=== PATIENT | female | born 1985 | race Caucasian/White ===

== ENCOUNTER 2017-06-24 11:34 | Emergency (ER) | payer BC, OTHER ==
[~2017-06-24 11:34] MED LIST: LEXA10TA; Z.0.BCPILL
[2017-06-24 11:45] VITALS: BP 165/97; PULSE 93; RESP 16; TEMP 98.2; O2SAT 98
[2017-06-24] MEDS ORDERED: KETOROLAC TROMETHAMINE 60 MG/2 ML (IM) VIAL IM ONE (12:15)
[2017-06-24] MEDS ORDERED: RABIES VACCINE HUMAN DIPL CELL 2.5 UNITS/ML SYRINGE IM ONE (12:15)
[2017-06-24] MEDS ORDERED: RABIES IMMUNE GLOBULIN INJ 1,500 UNITS/10 ML VIAL IM ONE (12:15)
[2017-06-24] MEDS ORDERED: LEXA10TA PO (12:18)
[2017-06-24] MEDS ORDERED: birth control PO (12:18)
--- NOTE | 2017-06-24 12:31 | PD ---
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 The dog came in with emergency condition which caused the of the dog. Ulnar of the dog stated that he was up-to-date on his immunizations but this cannot be verified as it is Monday. Patient has 2 small puncture wounds to the left forearm with localized ecchymosis and erythema. They are almost full-thickness. There is no bleeding. The area is tender with palpation secondary to the pinching of the skin. Patient has full range of motion of the hand and forearm otherwise. Patient's last tetanus was 4 years ago. Patient is currently on Augmentin for a respiratory infection, and has 2 days left. Pain is currently about a 7 out of 10. She has no known drug allergies. This is a workplace injury PFS Past Medical History Asthma: No Autoimmune Disease: No Blood Disorders: No Anxiety: Yes Depression: Yes Heart Rhythm Problems: No Cardiovascular Problems: No Chest Pain: No Cystic Fibrosis: No Diminished Hearing: No Gastrointestinal Disorders: Yes Genitourinary: No Headaches: No Hypertension: No Musculoskeletal: No Neurologic: No Psychiatric: Yes Respiratory: No Immunizations Current: Yes Seizures: No Sickle Cell Disease: No Sleep Apnea: No Tetanus Vaccination: < 5 Years ?: Not Past Surgical History Abdominal Surgery: No Cardiac Surgery: No Ear Surgery: No Endocrine Surgery: No Eye Surgery: No Genitourinary Surgery: No Gynecologic Surgery: No Neurologic Surgery: No Oral Surgery: No Thoracic Surgery: No Other Surgery: Yes (liposuction) Social History Alcohol Use: No Tobacco Use: No Substance Use: No Allergies-Medications (Allergen,Severity, Reaction): Coded Allergies: No Known Allergies (Verified , 10/14/15) Uncoded Allergies: NKA (Allergy, Unknown, 12/30/02) Reported Meds & Prescriptions Reported Meds & Active Scripts Active Ibuprofen 800 Mg Tab 800 Mg PO Q8H PRN Reported [ control] 1 Tab PO DAILY Lexapro (Escitalopram Oxalate) 10 Mg Tab 10 Mg PO DAILY Review of Systems Except as stated in HPI: all other systems reviewed are Neg General / Constitutional: No: Fever Eyes: No: Visual changes HENT: No: Headaches Cardiovascular: No: Chest Pain or Discomfort Respiratory: No: Shortness of Breath Gastrointestinal: No: Abdominal Pain Genitourinary: No: Dysuria Musculoskeletal: Positive: Myalgias, Pain, No: Limited ROM Skin: Positive Lesions (See history of present illness), No Rash Neurologic: No: Weakness Psychiatric: No: Depression Endocrine: No: Polydipsia Hematologic/Lymphatic: No: Easy Bruising Physical Exam Narrative GENERAL: Patient appears in mild to moderate distress per SKIN: Warm and dry. Normal color. Normal turgor. Patient is to puncture wounds to the volar lateral left forearm, with localized ecchymosis and mild erythema. Puncture wounds are barely full-thickness. There is no significant bleeding. HEAD: Atraumatic. Normocephalic. EYES: Pupils equal and round. No scleral icterus. No injection or drainage. ENT: No nasal bleeding or discharge. Mucous membranes pink and moist. Pharynx is clear. Airways patent. NECK: Trachea midline. No JVD. CARDIOVASCULAR: Regular rate and rhythm. RESPIRATORY: No accessory muscle use. Clear to auscultation. Breath sounds equal bilaterally. MUSCULOSKELETAL: Extremities without clubbing, cyanosis, or edema. No obvious deformities. Patient is mildly limited range of motion of the left forearm and hand secondary to pain only. No weakness. NEUROLOGICAL: Awake and alert. No obvious cranial nerve deficits. Motor grossly within normal limits. Five out of 5 muscle strength in the arms and legs. Normal speech. PSYCHIATRIC: Appropriate mood and affect; insight and judgment normal. Data Data Last Documented VS Vital Signs Date Time Temp Pulse Resp B/P (MAP) Pulse Ox O2 Delivery O2 Flow Rate FiO2 06/24/17 11:45 98.2 93 16 165/97 (119) 98 Orders Orders Ketorolac Inj (Toradol Inj) (06/24/17 12:15) Rabies Immune Globulin Inj (Hyperrab S/D (06/24/17 12:15) Rabies Vaccine Human Cell Inj (Imovax In (06/24/17 12:15) [facility] Medical Decision Making Medical Screen Exam Complete: Yes Emergency Medical Condition: Yes Differential Diagnosis Workplace injury. Dog bite. Question of rabies exposure. Narrative Course Patient is medically stable at time of exam. Patient is up-to-date on her tetanus immunization. Patient is already on Augmentin. Radiographic imaging is not felt warranted based on my history and physical. Recommend rabies vaccination to be started with localized rabies hemoglobin. Patient was given Toradol 60 mg IM. Workers comp form is completed. Patient to return in 3 days, 7 days, and 14 days to finish the rabies vaccine. Patient is given ibuprofen 800 mg 3 times daily #30. Patient is to finish her Augmentin as previously prescribed. Diagnosis Primary Impression: Work related injury Additional Impressions: Dog bite Qualified Codes: W54.0XXA - Bitten by dog, initial encounter Rabies, need for prophylactic vaccination against Patient Instructions: General Instructions, Rabies Immune Globulin (By injection), Rabies Vaccine (By injection) Additional Instructions: Patient is up-to-date on her tetanus immunization. Patient is already on Augmentin. Radiographic imaging is not felt warranted based on my history and physical. Recommend rabies vaccination to be started with localized rabies hemoglobin. Patient was given Toradol 60 mg IM. Workers comp form is completed. Patient to return in 3 days, 7 days, and 14 days to finish the rabies vaccine. Patient is given ibuprofen 800 mg 3 times daily #30. Patient is to finish her Augmentin as previously prescribed. Med/Other Pt SpecificInfo: Prescription(s) given Scripts Ibuprofen (Ibuprofen) 800 Mg Tab 800 MG PO Q8H Y for Pain/Inflammation, #30 TAB 0 Refills Prov: Lanette Troy DO 06/24/17 Disposition: 01 DISCHARGE HOME Condition: Stable Andrea Palencia Jun 24, 2017 12:31
[2017-06-24] MEDS ORDERED: IBUP1TAB7 PO (13:01)
== END 2017-06-24 13:28 | disposition home or self-care (01) ==
LOC: NEPD 11:34
DX: S51.832A Puncture wound without foreign body of left forearm, initial encounter (principal); F41.9 Anxiety disorder, unspecified; F32.9 Major depressive disorder, single episode, unspecified; Z29.14 Encounter for prophylactic rabies immune globulin; Z79.899 Other long term (current) drug therapy; W54.0XXA Bitten by dog, initial encounter; Y92.89 Other specified places as the place of occurrence of the external cause; Y99.0 Civilian activity done for income or pay
CPT/HCPCS: 90375; 90471; 90675; 96372; 99283; J1885

== ENCOUNTER 2017-09-06 09:50 | Inpatient (IN) | payer OTHER ==
[~2017-09-06] VITALS: Ht 165.1 cm; Wt 106.0 kg
[2017-09-06] VITALS (13 sets, daily range): BP systolic 144–148; BP diastolic 77–97; PULSE 80–118; RESP 16–20; TEMP 97.8–99.3; O2SAT 97–100
[~2017-09-06 09:50] MED LIST changes: +IBUP1TAB7 PO; -LEXA10TA; +LEXA10TA PO; -Z.0.BCPILL; +birth control PO
[2017-09-06] MEDS: RESP: ALBUTEROL 2.5 MG/IPRATROPIUM 0.5 MG NEB (SCH) INH ×2 (09:55→09:56)
[2017-09-06] MEDS ORDERED: diphenhydrAMINE HCL 50 MG/ML VIAL IVP ONE (10:00)
[2017-09-06] MEDS ORDERED: SODIUM CHLORIDE 0.9% FLUSH 10 ML FLUSH IV FLUSH PRN (10:00)
[2017-09-06] MEDS ORDERED: ONDANSETRON ODT 4 MG TAB PO ONE (10:00)
[2017-09-06] MEDS ORDERED: SODIUM CHLOR 0.9% 1000 ML INJ 1,000 ML IV SCH (10:00)
[2017-09-06] MEDS ORDERED: FAMOTIDINE 20 MG/2 ML VIAL IV PUSH ONE (10:00)
[2017-09-06] MEDS ORDERED: methylPREDNISolone SOD SUCC 125 MG/2 ML VIAL IV PUSH ONE (10:00)
[2017-09-06] MEDS ORDERED: EPINEPHrine HCL (1:1000) 1 MG/ML VIAL IM ONE (10:00)
[2017-09-06] MEDS ORDERED: ONDANSETRON HCL 4 MG/2 ML VIAL IV ONE (10:00)
[2017-09-06 10:22] LABS: AUTOMATED NEUTROPHIL # 5.6 TH/MM3 (1.8-7.7); BASOPHIL # 0.1 TH/MM3 (0-0.2); BASOPHIL % 0.9 % (0.0-2.0); EOSINOPHIL # 0.2 TH/MM3 (0-0.4); HEMATOCRIT 44.1 % (35.0-46.0); HEMOGLOBIN 14.6 GM/DL (11.6-15.3); LYMPH % 40.3 % (9.0-44.0); LYMPHOCYTE # 4.6 TH/MM3 (1.0-4.8); MEAN CELL VOLUME 85.4 FL (80.0-100.0); MEAN CORPUSCULAR HEMOGLOBIN 28.3 PG (27.0-34.0); MEAN CORPUSCULAR HGB CONC 33.1 % (32.0-36.0); MEAN PLATELET VOLUME 8.2 FL (7.0-11.0); MONO % 7.9 % (0.0-8.0); MONOCYTE # 0.9 TH/MM3 (0-0.9); NEUT % 48.9 % (16.0-70.0); PLATELET COUNT 433 TH/MM3 (150-450); RED BLOOD COUNT 5.17 MIL/MM3 (4.00-5.30); RED CELL DISTRIBUTION WIDTH 13.3 % (11.6-17.2); WHITE BLOOD COUNT 11.5 TH/MM3 (4.0-11.0)
[2017-09-06 10:44] LABS: ALBUMIN 4.2 GM/DL (3.4-5.0); AST (GOT) 14 U/L (15-37); BICARBONATE 23.7 MEQ/L (21.0-32.0); BLOOD UREA NITROGEN 12 MG/DL (7-18); CALCIUM 9.5 MG/DL (8.5-10.1); CHLORIDE 105 MEQ/L (98-107); GLOMERULAR FILTRATION RATE 66 ML/MIN (>89); GLUCOSE,RANDOM 111 MG/DL (74-106); SODIUM (NA) 140 MEQ/L (136-145)
[2017-09-06 10:45] LABS: ALT (GPT) 27 U/L (10-53)
[2017-09-06 10:47] LABS: ALKALINE PHOSPHATASE 66 U/L (45-117); TOTAL BILIRUBIN ADULT 0.6 MG/DL (0.2-1.0); TOTAL PROTEIN 9.5 GM/DL (6.4-8.2)
--- NOTE | 2017-09-06 11:32 | PD ---
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 She administered her own EpiPen and got out of the building. She drove to the emergency department. She also felt very nauseous. This is happened to her twice in the past where she is needed to go to the emergency department for these symptoms. In the past she has taken epinephrine and stayed home. PFSH Past Medical History Asthma: No Autoimmune Disease: No Blood Disorders: No Anxiety: Yes Depression: Yes Heart Rhythm Problems: No Cardiovascular Problems: No Chest Pain: No Cystic Fibrosis: No Diminished Hearing: No Gastrointestinal Disorders: Yes Genitourinary: No Headaches: No Hypertension: No Musculoskeletal: No Neurologic: No Psychiatric: Yes Respiratory: No Immunizations Current: Yes Seizures: No Sickle Cell Disease: No Sleep Apnea: No Tetanus Vaccination: < 5 Years Influenza Vaccination: Yes ?: Not Past Surgical History Abdominal Surgery: No Cardiac Surgery: No Ear Surgery: No Endocrine Surgery: No Eye Surgery: No Genitourinary Surgery: No Gynecologic Surgery: No Neurologic Surgery: No Oral Surgery: No Thoracic Surgery: No Other Surgery: Yes (liposuction) Social History Alcohol Use: No Tobacco Use: No Substance Use: No Allergies-Medications (Allergen,Severity, Reaction): Coded Allergies: No Known Allergies (Verified , 10/14/15) Uncoded Allergies: NKA (Allergy, Unknown, 12/30/02) Reported Meds & Prescriptions Reported Meds & Active Scripts Active Ibuprofen 800 Mg Tab 800 Mg PO Q8H PRN Reported [ control] 1 Tab PO DAILY Lexapro (Escitalopram Oxalate) 10 Mg Tab 10 Mg PO DAILY Review of Systems Except as stated in HPI: all other systems reviewed are Neg Physical Exam Narrative GENERAL: Anxious appearing SKIN: Focused skin assessment warm and dry. HEAD: Atraumatic. Normocephalic. EYES: Pupils equal and round. No injection or drainage. ENT: Moist mucous membranes NECK: Trachea midline. CARDIOVASCULAR: Tachycardic. No murmur appreciated. RESPIRATORY: Tachypnea, diffusely wheezing, unable to vocalize with stridor GASTROINTESTINAL: Abdomen soft, non-tender, nondistended. MUSCULOSKELETAL: No obvious deformities. NEUROLOGICAL: Awake and alert. No obvious cranial nerve deficits. Moving all extremities. PSYCHIATRIC: Appropriate mood and affect; insight and judgment normal. Data Data Last Documented VS Vital Signs Date Time Temp Pulse Resp B/P (MAP) Pulse Ox O2 Delivery O2 Flow Rate FiO2 09/06/17 10:00 118 147/68 09/06/17 09:57 20 100 Nasal Cannula 2.00 09/06/17 09:53 97.8 Orders Orders Complete Blood Count With Diff (09/06/17 09:53) Comprehensive Metabolic Panel (09/06/17 09:53) Ecg Monitoring (09/06/17 09:53) Iv Access Insert/Monitor (09/06/17 09:53) Oximetry (09/06/17 09:53) Diphenhydramine Inj (Benadryl Inj) (09/06/17 10:00) Methylprednisolone So Succ Inj (Solumedr (09/06/17 10:00) Famotidine Inj (Pepcid Inj) (09/06/17 10:00) Albuterol-Ipratropium Neb (Duoneb Neb) (09/06/17 10:00) Sodium Chloride 0.9% Flush (Ns Flush) (09/06/17 10:00) Epinephrine (1:1000) Inj (Adrenalin (1:1 (09/06/17 10:00) Ondansetron Inj (Zofran Inj) (09/06/17 10:00) Sodium Chlor 0.9% 1000 Ml Inj (Ns 1000 M (09/06/17 10:00) Ondansetron Odt (Zofran Odt) (09/06/17 10:00) Labs Laboratory Tests Test 09/06/17 10:00 White Blood Count 11.5 TH/MM3 Red Blood Count 5.17 MIL/MM3 Hemoglobin 14.6 GM/DL Hematocrit 44.1 % Mean Corpuscular Volume 85.4 FL Mean Corpuscular Hemoglobin 28.3 PG Mean Corpuscular Hemoglobin Concent 33.1 % Red Cell Distribution Width 13.3 % Platelet Count 433 TH/MM3 Mean Platelet Volume 8.2 FL Neutrophils (%) (Auto) 48.9 % Lymphocytes (%) (Auto) 40.3 % Monocytes (%) (Auto) 7.9 % Eosinophils (%) (Auto) 2.0 % Basophils (%) (Auto) 0.9 % Neutrophils # (Auto) 5.6 TH/MM3 Lymphocytes # (Auto) 4.6 TH/MM3 Monocytes # (Auto) 0.9 TH/MM3 Eosinophils # (Auto) 0.2 TH/MM3 Basophils # (Auto) 0.1 TH/MM3 CBC Comment DIFF FINAL Differential Comment Blood Urea Nitrogen 12 MG/DL Creatinine 1.00 MG/DL Random Glucose 111 MG/DL Total Protein 9.5 GM/DL Albumin 4.2 GM/DL Calcium Level 9.5 MG/DL Alkaline Phosphatase 66 U/L Aspartate Amino Transf (AST/SGOT) 14 U/L Alanine Aminotransferase (ALT/SGPT) 27 U/L Total Bilirubin 0.6 MG/DL Sodium Level 140 MEQ/L Potassium Level 3.3 MEQ/L Chloride Level 105 MEQ/L Carbon Dioxide Level 23.7 MEQ/L Anion Gap 11 MEQ/L Estimat Glomerular Filtration Rate 66 ML/MIN [facility] Medical Decision Making Medical Screen Exam Complete: Yes Emergency Medical Condition: Yes Interpretation(s) Afebrile, tachycardic, hypertensive Mild leukocytosis Mild hypokalemia Differential Diagnosis Anaphylaxis, acute allergic reaction, inhalation exposure Narrative Course This is a 31-year-old female who presented to the emergency department with anaphylaxis in the setting of a bleach exposure. Patient was tripoding, unable to speak, and had stridor on initial presentation. She was given IM epinephrine , steroids, Benadryl and an H2 silvia. On reassessment patient is much improved. Patient required 2 doses of epinephrine in the setting of her attack. She appeared very unwell on arrival. She says that this is happened multiple times in the past but this is the worse it has been. I think it is reasonable to observe the patient for recurrence of symptoms. Critical Care Narrative Aggregate critical care time was 45 minutes. Time to perform other separately billable procedures was not included in the critical care time. My time did not include minutes spent treating any other patients simultaneously or on activities that did not directly contribute to the patient's treatment. The services I provided to this patient were to treat and/or prevent clinically significant deterioration that could result in: Disability, I provided critical care services requiring my management, as noted below: Chart data review, documentation time, medication orders and management, vital sign assessments/reviewing monitor data, ordering and reviewing lab tests, ordering and interpreting/reviewing x-rays and diagnostic studies, care of the patient and discussion of the patient with the admitting physicians. Diagnosis Primary Impression: Anaphylaxis Qualified Codes: T78.2XXA - Anaphylactic shock, unspecified, initial encounter Admitting Information Admitting Physician Requests: Observation Karime Melendez MD September 06, 2017 11:32
--- NOTE | 2017-09-06 12:36 | HHI.HP ---
[facility] Service [facility] Primary Care Physician Brenda Ramirez MD Admission Diagnosis anaphylaxis Diagnoses: Travel History International Travel<30 Days: No Contact w/Intl Traveler <30 Da: No Traveled to Known Affected Are: No History of Present Illness 31 y/o WF admitted for anaphylaxis. patient was in her usual state of health until earlier this morning When some cleaning workers came to her workplace and she found out there using bleach. The patient had recognized the smell of bleach at which point she confirmed with a cleaning worker that bleach was being used. She subsequently went outside to minimize her allergy/anaphylaxis; nonetheless she still developed the symptoms of shortness of breath. she subsequently gave herself an albuterol inhaler treatment as well as administering her epinephrine pen. She reported having nausea and chest tightness but no chest pain. Her symptoms is just partially and out of concern for worsening symptoms, she decided come to the emergency department being driven by a coworker. Patient ultimately did have some nonbloody emesis in the emergency department. Per my discussion with the ED physician, the patient was tripoding. She was given another epinephrine pen after and 3 DuoNebs which her symptoms improved drastically was doing well on room air. Patient was given Benadryl and IV steroids. Patient is not conversive with no dyspnea. Patient denies having her lips swell up or had noticing any cyanosis and today's incident. Patient reports having a known anaphylactic reaction to bleach was discovered about 15 years ago. 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 EYES: Pupils equal and round. No scleral icterus. No injection or drainage. ENT: No nasal bleeding or discharge. Mucous membranes pink and moist. CARDIOVASCULAR: Regular rate and rhythm. no murmurs RESPIRATORY: No accessory muscle use. Clear to auscultation. Breath sounds equal bilaterally. Very faint inspiratory stridor. GASTROINTESTINAL: Abdomen soft, non-tender, nondistended. Hepatic and splenic margins not palpable. Extremities: No clubbing, cyanosis, or edema. No obvious deformities. MUSCULOSKELETAL: adequate muscle bulk and tone for age and habitus NEUROLOGICAL: Awake and alert. No obvious cranial nerve deficits. No facial droop nor slurred speech noted. PSYCHIATRIC: Appropriate mood and affect; insight and judgment normal. Laboratory Laboratory Tests Test 09/06/17 10:00 White Blood Count 11.5 Red Blood Count 5.17 Hemoglobin 14.6 Hematocrit 44.1 Mean Corpuscular Volume 85.4 Mean Corpuscular Hemoglobin 28.3 Mean Corpuscular Hemoglobin Concent 33.1 Red Cell Distribution Width 13.3 Platelet Count 433 Mean Platelet Volume 8.2 Neutrophils (%) (Auto) 48.9 Lymphocytes (%) (Auto) 40.3 Monocytes (%) (Auto) 7.9 Eosinophils (%) (Auto) 2.0 Basophils (%) (Auto) 0.9 Neutrophils # (Auto) 5.6 Lymphocytes # (Auto) 4.6 Monocytes # (Auto) 0.9 Eosinophils # (Auto) 0.2 Basophils # (Auto) 0.1 CBC Comment DIFF FINAL Differential Comment Blood Urea Nitrogen 12 Creatinine 1.00 Random Glucose 111 Total Protein 9.5 Albumin 4.2 Calcium Level 9.5 Alkaline Phosphatase 66 Aspartate Amino Transf (AST/SGOT) 14 Alanine Aminotransferase (ALT/SGPT) 27 Total Bilirubin 0.6 Sodium Level 140 Potassium Level 3.3 Chloride Level 105 Carbon Dioxide Level 23.7 Anion Gap 11 Estimat Glomerular Filtration Rate 66 Result Diagram: 09/06/17 1000 09/06/17 1000 Caprini VTE Risk Assessment Caprini VTE Risk Assessment: No/Low Risk (score <= 1) Caprini Risk Assessment Model Point Value = 1 Point Value = 2 Point Value = 3 Point Value = 5 Age 41-60 Minor surgery BMI > 25 kg/m2 Swollen legs Varicose veins or History of unexplained or recurrent spontaneous Oral contraceptives or hormone replacement Sepsis (< 1 month) Serious lung disease, including pneumonia (< 1 month) Abnormal pulmonary function Acute myocardial infarction Congestive heart failure (< 1 month) History of inflammatory bowel disease Medical patient at bed rest Age 61-74 Arthroscopic surgery Major open surgery (> 45 min) Laparoscopic surgery (> 45 min) Malignancy Confined to bed (> 72 hours) Immobilizing plaster cast Central venous access Age >= 75 History of VTE Family history of VTE Factor V Leiden Prothrombin [id number] Lupus anticoagulant Anticardiolipin antibodies Elevated serum homocysteine Heparin-induced thrombocytopenia Other congenital or acquired thrombophilia Stroke (< 1 month) Elective arthroplasty Hip, pelvis, or leg fracture Acute spinal cord injury (< 1 month) Prophylaxis Regimen Total Risk Factor Score Risk Level Prophylaxis Regimen 0-1 Low Early ambulation 2 Moderate Order ONE of the following: *Sequential Compression Device (SCD) *Heparin 5000 units SQ BID 3-4 Higher Order ONE of the following medications: *Heparin 5000 units SQ TID *Enoxaparin/Lovenox 40 mg SQ daily (WT < 150 kg, CrCl > 30 mL/min) *Enoxaparin/Lovenox 30 mg SQ daily (WT < 150 kg, CrCl > 10-29 mL/min) *Enoxaparin/Lovenox 30 mg SQ BID (WT < 150 kg, CrCl > 30 mL/min) AND/OR *Sequential Compression Device (SCD) 5 or more Highest Order ONE of the following medications: *Heparin 5000 units SQ TID (Preferred with Epidurals) *Enoxaparin/Lovenox 40 mg SQ daily (WT < 150 kg, CrCl > 30 mL/min) *Enoxaparin/Lovenox 30 mg SQ daily (WT < 150 kg, CrCl > 10-29 mL/min) *Enoxaparin/Lovenox 30 mg SQ BID (WT < 150 kg, CrCl > 30 mL/min) AND *Sequential Compression Device (SCD) Assessment and Plan Assessment and Plan 31-year-old white female admitted for anaphylaxis Anaphylaxis secondary to bleach irritant -Status post 2 doses of epinephrine and 1 dose of Solu-Medrol -Clinically stable at this time but needs to be observed -Placed on telemetry and admit to CIC or higher -DuoNeb as needed shortness of breath -We will give additional 1x dexamethasone dose later tonight p.o. Continue home Lexapro and bupropion Anticipate discharge on 09/07 of all stable. Dillan Harden MD September 06, 2017 12:36
[2017-09-06] MEDS ORDERED: DEXAMETHASONE 1.5 MG TAB PO ONE (14:15)
[2017-09-06] MEDS: RESP: ALBUTEROL 2.5 MG/IPRATROPIUM 0.5 MG NEB (PRN) NEB ×2 (15:29→21:18)
[2017-09-06] MEDS ORDERED: ESCI20TA PO (15:53)
[2017-09-06] MEDS ORDERED: WELLTAB39 PO (15:53)
[2017-09-06] MEDS ORDERED: DEXAMETHASONE 6 MG TAB PO ONE (20:00)
[2017-09-06] MEDS ORDERED: ONDANSETRON ODT 4 MG TAB PO PRN (20:30)
[2017-09-07] VITALS (18 sets, daily range): BP systolic 144–147; BP diastolic 79–85; PULSE 70–93; RESP 16–18; TEMP 97.3–98.9; O2SAT 96–97
[2017-09-07] MEDS ORDERED: ESCITALOPRAM OXALATE 10 MG TAB PO SCH (09:00)
[2017-09-07] MEDS ORDERED: PRED10PA PO (12:58)
[2017-09-07] MEDS ORDERED: EPIP0.3I IM (12:58)
--- NOTE | 2017-09-07 13:00 | HHI.PR ---
Subjective Remarks Resting comfortably in bed No event overnight Denied chest and or short of breath No fever or chills Objective Vitals Vital Signs Date Time Temp Pulse Resp B/P (MAP) Pulse Ox O2 Delivery O2 Flow Rate FiO2 09/07/17 12:21 97.3 72 18 147/79 (101) 97 09/07/17 12:00 74 09/07/17 11:00 77 09/07/17 10:00 82 09/07/17 09:00 78 09/07/17 08:00 78 09/07/17 07:35 97.3 72 18 147/79 (101) 97 09/07/17 07:00 74 09/07/17 06:00 70 09/07/17 05:00 78 09/07/17 04:22 98.8 74 17 144/85 (104) 96 09/07/17 04:09 83 09/07/17 03:00 74 09/07/17 02:00 70 09/07/17 01:00 78 09/07/17 00:11 93 09/07/17 00:00 98.9 82 16 144/79 (100) 96 09/06/17 23:00 86 09/06/17 22:00 94 09/06/17 21:00 80 09/06/17 20:08 98 09/06/17 19:53 99.3 84 16 144/77 (99) 97 09/06/17 19:00 94 09/06/17 18:00 94 09/06/17 17:00 98 09/06/17 16:00 110 09/06/17 15:00 99.0 104 18 148/83 (104) 99 09/06/17 15:00 118 I/O 09/06/17 09/06/17 09/06/17 09/07/17 09/07/17 09/07/17 07:00 15:00 23:00 07:00 15:00 23:00 Intake Total 240 ml 480 ml Output Total 600 ml 1450 ml Balance -360 ml -970 ml Intake Oral 240 ml 480 ml Output Urine Total 600 ml 1450 ml Result Diagram: 09/06/17 1000 09/06/17 1000 Objective Remarks GENERAL: This is a well-nourished, well-developed patient, in no apparent distress. SKIN: No rashes, warm and dry HEAD: Atraumatic. Normocephalic. EYES: Pupils equal round and reactive. Extraocular motions intact. No scleral icterus. ENT: Nose without bleeding, or drainage, Airway patent. NECK: Trachea midline. Supple CARDIOVASCULAR: Regular rate and rhythm without murmurs, gallops, or rubs. RESPIRATORY: Fair air entry bilaterally. No wheezes, rales, or rhonchi. GASTROINTESTINAL: Abdomen soft, non-tender, nondistended. Positive bowel sounds MUSCULOSKELETAL: Extremities without clubbing, cyanosis, or edema. Pedal pulses appreciated NEUROLOGICAL: Awake and alert. Moves all extremity. Normal speech.no focal neurological deficit A/P Assessment and Plan 31-year-old white female admitted for anaphylaxis Anaphylaxis secondary to bleach irritant -Status post 2 doses of epinephrine and 1 dose of Solu-Medrol -Clinically stable at this time but needs to be observed -Placed on telemetry and admit to CIC or higher -DuoNeb as needed shortness of breath -We will discharge on prednisone taper, patient requested prescription for EpiPen Patient on both Lexapro and bupropion, I recommended holding Lexapro Discharge patient to home Condition on discharge: Improved Healthy heart diet as tolerated Ad Maegan activity Rx written: Prednisone taper and EpiPen Follow-up with primary care physician Chantal Jackson MD September 07, 2017 13:00
== END 2017-09-07 15:42 | disposition home or self-care (01) | DRG 918 ==
LOC: NEPC 09:50 → NEDA 12:00 → OBSVTOIN 13:49 → HCIS 14:32
PROVIDERS: ADMIT Hospitalist; ATTEND Hospitalist
DX: T54.91XA Toxic effect of unspecified corrosive substance, accidental (unintentional), initial encounter (principal); T78.2XXA Anaphylactic shock, unspecified, initial encounter; R06.02 Shortness of breath; Y92.59 Other trade areas as the place of occurrence of the external cause; F32.9 Major depressive disorder, single episode, unspecified
CPT/HCPCS: 80053; 85025; 94640; 94664; J0171; J1200; J2930; J7030; J8540